=== PATIENT | male | born 1980 | race Caucasian/White ===

== ENCOUNTER 2016-07-02 09:11 | Observation (INO) | payer MEDICAID, OTHER ==
[~2016-07-02] VITALS: Ht 190.5 cm; Wt 77.1 kg
[2016-07-02 10:02] LABS: Basophils # (auto) 0 uL; Basophils % (auto) 0.4 % (0.0-2.0); Eosinophils # (auto) 0.2 uL; Eosinophils % (auto) 2.1 % (0.0-7.0); Hemoglobin 15.1 g/dL (13.5-17.5); Lymphocytes # (auto) 2.1 uL; Lymphocytes % (auto) 28.5 % (10.0-50.0); Mean Corpuscular Hemoglobin 32.1 pg (28.0-32.0); Mean Corpuscular Hgb Conc. 34.2 g/dL (32.0-36.0); Mean Corpuscular Volume 93.9 fL (80.0-100.0); Mean Platelet Volume 9.9 fL (7.4-10.4); Monocytes # (auto) 0.6 uL; Monocytes % (auto) 7.8 % (0.0-12.0); Neutrophils # (auto) 4.5 uL; Neutrophils % (auto) 61.2 % (37.0-80.0); Platelet Count (auto) 222 10^3/uL (140-450); Red Cell Distribution Width 13.3 % (11.6-16.0); White Blood Cell 7.4 10^3/uL (4.4-10.8)
[2016-07-02 10:26] LABS: Albumin 4.4 g/dL (3.4-5.0); Alkaline Phosphatase 79 U/L (45-117); Anion Gap 10 (5-15); Aspartate Aminotransferase 29 U/L (15-37); BUN/Creatinine Ratio 19.4; Bilirubin, Total 1.5 mg/dL (0.2-1.0); Blood Urea Nitrogen 19 mg/dL (7-18); Calcium 9.1 mg/dL (8.5-10.1); Carbon Dioxide 27 mmol/L (21-32); Chloride 101 mmol/L (98-107); GFR African American 111 mL/min; GFR Non-African American 92 mL/min; Glucose 125 mg/dL (74-106); Potassium 3.5 mmol/L (3.5-5.1); Sodium 138 mmol/L (136-145); Total Protein 7.9 g/dL (6.4-8.2)
[2016-07-02] MEDS ORDERED: SODIUM CHLORIDE 0.9% 1,000 ML IVB ONE (15:55)
[2016-07-02] MEDS ORDERED: TETANUS-DIPTH-ACEL PERTUSSIS 0.5ML SYRG IM ONE (16:15)
[2016-07-02 17:40] LABS: Magnesium 2.6 mg/dL (1.6-2.6)
[2016-07-02 18:00] VITALS: BP 117/72
== END 2016-07-02 18:18 | disposition home or self-care (01) | DRG 384 ==
LOC: ER 09:11 → OVERFLOW 15:56 → ER 18:18
PROVIDERS: ADMIT Emergency Medicine; ATTEND Emergency Medicine
DX: S00.83XA Contusion of other part of head, initial encounter (principal); R55 Syncope and collapse; S01.81XA Laceration without foreign body of other part of head, initial encounter; F17.210 Nicotine dependence, cigarettes, uncomplicated; G40.909 Epilepsy, unspecified, not intractable, without status epilepticus; X58.XXXA Exposure to other specified factors, initial encounter; Y93.89 Activity, other specified; Y92.89 Other specified places as the place of occurrence of the external cause; Y99.8 Other external cause status
CPT/HCPCS: 36415; 70450; 71020; 80053; 80320; 83735; 84443; 84484; 85025; 90471; 90715; 93005; 96360; 99285; G0378; J7030

== ENCOUNTER 2016-07-04 21:16 | Observation (INO) | payer MEDICAID ==
[~2016-07-04] VITALS: Ht 190.5 cm; Wt 77.1 kg
[2016-07-04 22:05] LABS: Basophils # (auto) 0 uL; Basophils % (auto) 0.2 % (0.0-2.0); Eosinophils # (auto) 0 uL; Hemoglobin 13.5 g/dL (13.5-17.5); Lymphocytes # (auto) 0.9 uL; Lymphocytes % (auto) 7.4 % (10.0-50.0); Mean Corpuscular Hemoglobin 31.9 pg (28.0-32.0); Mean Corpuscular Hgb Conc. 33.9 g/dL (32.0-36.0); Mean Corpuscular Volume 94.2 fL (80.0-100.0); Mean Platelet Volume 9.4 fL (7.4-10.4); Monocytes # (auto) 0.9 uL; Monocytes % (auto) 7.1 % (0.0-12.0); Neutrophils # (auto) 10.8 uL; Neutrophils % (auto) 85.3 % (37.0-80.0); Platelet Count (auto) 218 10^3/uL (140-450); Red Cell Distribution Width 12.8 % (11.6-16.0); White Blood Cell 12.6 10^3/uL (4.4-10.8)
[2016-07-04 22:24] LABS: Albumin 4.1 g/dL (3.4-5.0); BUN/Creatinine Ratio 18.7; Bilirubin, Total 1.5 mg/dL (0.2-1.0); Calcium 8.7 mg/dL (8.5-10.1); Potassium 3.6 mmol/L (3.5-5.1)
[2016-07-04] MEDS ORDERED: SODIUM CHLORIDE 0.9% 1,000 ML IV ONE (23:15)
[2016-07-05 03:53] LABS: Acetaminophen < 2.0 ug/mL (10-30); Salicylate < 1.7 mg/dL (2.8-20.0)
[2016-07-05 04:05] LABS: Urine Bilirubin Negative (Negative); Urine Blood Negative /uL (Negative); Urine Color Yellow (Yellow); Urine Glucose Normal (Normal); Urine Nitrite Negative (Negative); Urine RBC <1 /hpf (0 - 3); Urine Urobilinogen Normal (Negative); Urine pH 5.5 (5.0-8.0)
[2016-07-05 04:07] LABS: Urine Ketone 1+ (Negative)
[2016-07-05] MEDS ORDERED: OLANZapine 5 MG TAB PO ONE (08:15)
[2016-07-05] MEDS ORDERED: ALPRAZolam 0.5 MG TAB PO ONE (08:15)
[2016-07-05] MEDS ORDERED: ACETAMINOPHEN 325 MG TAB PO ONE (16:30)
[2016-07-05] MEDS ORDERED: IBUPROFEN 600 MG TAB PO ONE (16:30)
[2016-07-05] MEDS ORDERED: LORazepam 0.5 MG TAB PO ONE (21:15)
[2016-07-06] MEDS: IBUPROFEN 600 MG TAB PO PRN (09:51)
[2016-07-06] MEDS: ACETAMINOPHEN 325 MG TAB PO PRN (09:51)
[2016-07-06] MEDS: OLANZapine 5 MG TAB PO SCH (10:08)
[2016-07-06] MEDS: ALPRAZolam 0.5 MG TAB PO PRN ×2 (11:16→22:00)
[2016-07-07] MEDS ORDERED: SODIUM CHLORIDE 0.9% 1,000 ML IV ONE (07:38)
[2016-07-07] MEDS ORDERED: PIPERACILLIN-TAZOB 2.25GM 50 ML IV ONE ×2 (07:45→08:52)
[2016-07-07] MEDS ORDERED: cefTRIAXone 1GM/50ML D5W 50 ML IV ONE (07:45)
[2016-07-07 08:59] LABS: Basophils # (auto) 0.2 uL; Basophils % (auto) 1.5 % (0.0-2.0); Eosinophils # (auto) 0.2 uL; Eosinophils % (auto) 1.5 % (0.0-7.0); Hematocrit 42.2 % (41.0-53.0); Hemoglobin 14.2 g/dL (13.5-17.5); Lymphocytes # (auto) 1.5 uL; Lymphocytes % (auto) 12.5 % (10.0-50.0); Mean Corpuscular Hgb Conc. 33.5 g/dL (32.0-36.0); Mean Corpuscular Volume 95.4 fL (80.0-100.0); Mean Platelet Volume 9.6 fL (7.4-10.4); Monocytes # (auto) 0.6 uL; Monocytes % (auto) 4.9 % (0.0-12.0); Neutrophils # (auto) 9.6 uL; Neutrophils % (auto) 79.6 % (37.0-80.0); Platelet Count (auto) 247 10^3/uL (140-450); Red Cell Distribution Width 13.4 % (11.6-16.0); White Blood Cell 12.1 10^3/uL (4.4-10.8)
[2016-07-07 09:27] LABS: Albumin 3.7 g/dL (3.4-5.0); BUN/Creatinine Ratio 16.7; Bilirubin, Total 0.4 mg/dL (0.2-1.0); Calcium 8.6 mg/dL (8.5-10.1); Potassium 3.6 mmol/L (3.5-5.1); Total Protein 6.9 g/dL (6.4-8.2)
[2016-07-07] MEDS: OLANZapine 5 MG TAB PO SCH (10:00)
[2016-07-07] MEDS: IBUPROFEN 600 MG TAB PO PRN (16:13)
[2016-07-07] MEDS: ACETAMINOPHEN 325 MG TAB PO PRN (16:13)
[2016-07-08] MEDS ORDERED: LIDOCAINE 1% HCL (LOCAL ANESTH.) INJ 20ML MDV ONE (08:45)
[2016-07-08] MEDS ORDERED: CLINDAMYCIN 900MG IV 50 ML IV ONE (09:00)
[2016-07-08] MEDS ORDERED: PIPERACILLIN-TAZOB 3.375GM 100 ML IV ONE (09:00)
[2016-07-08] MEDS: IBUPROFEN 600 MG TAB PO PRN ×2 (09:13→09:14)
[2016-07-08 09:48] VITALS: BP 120/64
[2016-07-08] MEDS: OLANZapine 5 MG TAB PO SCH (10:00)
[2016-07-08] MEDS: ALPRAZolam 0.5 MG TAB PO PRN (10:25)
== END 2016-07-08 11:43 | disposition home or self-care (01) | DRG 756 ==
LOC: ER 22:12 → OVERFLOW 07-05 05:09 → ER 07-08 11:43
PROVIDERS: ADMIT Emergency Medicine; ATTEND Emergency Medicine
DX: R45.851 Suicidal ideations (principal); F32.9 Major depressive disorder, single episode, unspecified; F41.9 Anxiety disorder, unspecified; F20.9 Schizophrenia, unspecified; F31.9 Bipolar disorder, unspecified; F17.210 Nicotine dependence, cigarettes, uncomplicated
CPT/HCPCS: 36415; 80053; 80320; 80329; 81001; 85025; 87040; 87205; 93005; 96361; 96365; 96366; 96368; 99285; G0378; G0434; J2543; J3490; J7030; J2001

== ENCOUNTER 2016-07-14 07:53 | Emergency (ER) | payer MEDICAID ==
[~2016-07-14] VITALS: Ht 190.5 cm; Wt 77.1 kg
[2016-07-14 08:39] VITALS: BP 151/104
== END 2016-07-14 09:10 | disposition left against medical advice (07) ==
LOC: ER 07:57
DX: R50.9 Fever, unspecified (principal); Z53.21 Procedure and treatment not carried out due to patient leaving prior to being seen by health care provider

== ENCOUNTER 2019-05-16 10:03 | Emergency (ER) | payer MEDICAID ==
[~2019-05-16] VITALS: Ht 190.5 cm; Wt 99.8 kg
[2019-05-16 10:47] VITALS: BP 144/84
[2019-05-16] MEDS ORDERED: KETOROLAC TROMETH 60MG/2ML VIAL IM ONE (11:00)
== END 2019-05-16 11:21 | disposition home or self-care (01) ==
LOC: ER 10:03
DX: M25.572 Pain in left ankle and joints of left foot (principal); M25.571 Pain in right ankle and joints of right foot; F17.210 Nicotine dependence, cigarettes, uncomplicated
CPT/HCPCS: 96372; 99283; J1885

== ENCOUNTER 2019-05-19 10:01 | Emergency (ER) | payer MEDICAID ==
[~2019-05-19] VITALS: Ht 190.5 cm; Wt 99.8 kg
[2019-05-19 10:57] VITALS: BP 134/80
== END 2019-05-19 12:45 | disposition home or self-care (01) ==
LOC: ER 10:01
DX: M16.0 Bilateral primary osteoarthritis of hip (principal); G89.29 Other chronic pain; M25.552 Pain in left hip; F17.210 Nicotine dependence, cigarettes, uncomplicated; Z59.0 Homelessness
CPT/HCPCS: 73502